=== PATIENT | female | born 1985 | race Asian ===

== ENCOUNTER 2021-09-07 13:26 | Emergency (ER) | payer MEDICAID ==
[~2021-09-07] VITALS: Ht 170.2 cm; Wt 65.8 kg
[2021-09-07 13:50] VITALS: BP_SYST 138
--- NOTE | 2021-09-07 14:08 | NUR ---
Patient to ER bed TENT to gown for evaluation. Side rails up.
--- NOTE | 2021-09-07 14:08 | NUR ---
PT BIB [facility]ILY [facility] C/O DIZZINESS SINCE 0800 THIS MORNING, STATES THAT THE ROOM IS SPINNING WITH [place]. PT WAS COVID + 10 DAYS AGO WITH COUGH STILL. PT IS AMBULATORY, AAOX4, VSS
--- NOTE | 2021-09-07 14:40 | NUR ---
ER DR. SRINIVASAN EXAMINING PT IN TENT
[2021-09-07] MEDS ORDERED: MECL-160 PO (15:06)
[2021-09-07 15:26] VITALS: BP_SYST 137
--- NOTE | 2021-09-07 15:26 | NUR ---
Patient given written and verbal discharge instructions and verbalizes understanding. ER MD discussed with patient the results and treatment provided. Patient in stable condition. ID arm band removed. Rx of MECLIZINE given. Patient educated on pain management and to follow up with PMD. Pain Scale 0/10. Opportunity for questions provided and answered. Medication side effect fact sheet provided.
== END 2021-09-07 15:26 | disposition home or self-care (01) ==
LOC: SED 13:26
DX: U07.1 COVID-19 (principal); R42 Dizziness and giddiness; R53.1 Weakness; R05.9 Cough, unspecified; Z20.822 Contact with and (suspected) exposure to COVID-19
CPT/HCPCS: 36415; 99283